=== PATIENT | male | born 1960 | race Caucasian/White ===

== ENCOUNTER 2024-11-14 11:17 | Emergency (ER) | payer OTHER, BC ==
[~2024-11-14] VITALS: Ht 180.3 cm; Wt 72.6 kg
[2024-11-14] MEDS ORDERED: LIDOCAINE 5% (PATCH) 1 EA PATCH TP ONE (12:31)
[2024-11-14] MEDS ORDERED: ONDANSETRON HCL/PF 4 MG/2 ML VIAL ONE (12:31)
[2024-11-14] MEDS ORDERED: ACETAMINOPHEN ES 500 MG TABLET ONE (12:32)
[2024-11-14] MEDS ORDERED: MORPHINE SULFATE INJ 4 MG/ML DISP.SYRIN ONE (12:32)
[2024-11-14] MEDS: ACETAMINOPHEN ES 500 MG TABLET PO ONE (12:48)
[2024-11-14] MEDS: LIDOCAINE 5% (PATCH) 1 EA PATCH TP SCH (12:48)
[2024-11-14] MEDS: ONDANSETRON HCL/PF 4 MG/2 ML VIAL IV ONE (12:48)
[2024-11-14] MEDS: MORPHINE SULFATE INJ 2 MG/ML DISP.SYRIN IV ONE (12:49)
[2024-11-14] MEDS: IV NS 0.9% 500 ML BAG IV ONE (12:49)
[2024-11-14 13:15] LABS: BASOPHILS % (AUTO) 0.7 % (0.0-2.0); EOSINOPHILS # (AUTO) 0.1 K/uL (0.0-0.7); EOSINOPHILS % (AUTO) 1.6 % (0.0-6.0); HEMATOCRIT 45 % (39-51); HEMOGLOBIN 15.8 g/dL (13.5-17.5); INR 0.96 (0.91-1.10); LYMPHOCYTES # (AUTO) 1.3 K/uL (0.8-4.8); LYMPHOCYTES % (AUTO) 22.6 % (20.0-44.0); MEAN CORPUSCULAR HEMOGLOBIN 34 PG (26.0-33.0); MEAN CORPUSCULAR HGB CONC 35 g/dl (31.0-36.0); MEAN CORPUSCULAR VOLUME 99 fL (80-96); MONOCYTES # (AUTO) 0.5 K/uL (0.1-1.30); MONOCYTES % (AUTO) 8.2 % (2.0-12.0); NEUTROPHILS # (AUTO) 3.8 K/uL (1.8-8.9); NEUTROPHILS % (AUTO) 66.9 % (43.0-81.0); PARTIAL THROMBOPLASTIN TIME 26.7 SEC (24.3-34.3); PLATELET COUNT (AUTO) 325 K/uL (150-450); PROTHROMBIN TIME 10.2 SECS (9.2-11.1); RED BLOOD CELL COUNT(AUTO) 4.59 MIL/uL (4.5-6.0); RED CELL DISTRIBUTION WIDTH 13.7 % (11.5-15.0); WHITE BLOOD COUNT (AUTO) 5.7 K/uL (4.3-11.0)
[2024-11-14 13:17] LABS: ALBUMIN 4.3 g/dL (3.4-5.0); BILIRUBIN,DIRECT 0.1 mg/dL (0.0-0.2); BILIRUBIN,TOTAL 0.4 mg/dL (0.2-1.0); CALCIUM, SERUM 9.8 mg/dL (8.5-10.1); POTASSIUM 4.2 mmol/L (3.5-5.1); TOTAL PROTEIN, SERUM 7.5 g/dL (6.4-8.2)
[2024-11-14] MEDS ORDERED: IOHEXOL-300 100 ML VIAL IV ONE (13:42)
[2024-11-14] MEDS ORDERED: IV NS 0.9% 250 ML IV ONE (13:42)
[2024-11-14] MEDS ORDERED: CYCL5TAB PO (13:59)
[2024-11-14] MEDS ORDERED: LIDO30AD10 TP (13:59)
[2024-11-14] MEDS ORDERED: HYDR-4303 PO (13:59)
[2024-11-14 16:38] VITALS: BP 122/70; TEMP 99; O2SAT 95
== END 2024-11-14 16:40 | disposition home or self-care (01) ==
LOC: ER 11:20
DX: S32.008A Other fracture of unspecified lumbar vertebra, initial encounter for closed fracture (principal); M54.50 Low back pain, unspecified; I10 Essential (primary) hypertension; V49.59XA Passenger injured in collision with other motor vehicles in traffic accident, initial encounter; Y93.89 Activity, other specified; Y92.415 Exit ramp or entrance ramp of street or highway as the place of occurrence of the external cause; Y99.8 Other external cause status
CPT/HCPCS: 99285; 71260; 96374; 96361; 96375; 93005; 74177; 85025; 80048; 80076; 36415; 85730; 86850; J2270; J2405; J7050; J7040; A4223; Q9967